=== PATIENT | male | born 1990 | race Caucasian/White ===

== ENCOUNTER 2016-08-03 09:50 | Emergency (ER) | payer OTHER ==
[2016-08-03 09:50] VITALS: BMI 22.6
--- NOTE | 2016-08-03 10:45 | ED PDOC ---
Arrival/HPI - General Chief Complaint: Upper Extremity Problem/Injury Time Seen by Provider: 08/03/16 10:09 Historian: Patient - History of Present Illness Narrative History of Present Illness (Text): 08/03/16 10:40 25yr old male presents today with right hand pain s/p injury. Patient states 2 days ago he closed his hand in the sliding door of a taxi. Patient complaining of pain to the first and second metacarpals of the right hand. Patient denies increased range of motion of the hand. Denies numbness weakness or tingling. No fevers or chills. No medications taken for pain at home. Patient complaining of swelling to the hand. Patient states his friends have been telling him to come to the emergency room for evaluation. Past Medical History - Provider Review Nursing Documentation Reviewed: Yes - Travel History Have you recently traveled outside [place] w/in the past 3 mons?: No - Infectious Disease Hx of Infectious Diseases: None - Tetanus Immunization Tetanus Immunization: Up to Date - Past Medical History Past Medical History: No Previous - Psychiatric Hx Substance Use: No - Past Surgical History Past Surgical History: No Previous - Anesthesia Hx Anesthesia: No Hx Anesthesia Reactions: No Hx Malignant Hyperthermia: No - Suicidal Assessment Feels Threatened In Home Enviroment: No Family/Social History - Physician Review Nursing Documentation Reviewed: Yes Family/Social History: Unknown Family HX Smoking Status: Never Smoked Hx Alcohol Use: No Hx Substance Use: No Allergies/Home Meds Allergies/Adverse Reactions: Allergies No Known Allergies Allergy (Verified 08/03/16 09:54) Home Medications: Home Meds Medication Instructions Recorded Confirmed Ibuprofen [Motrin Tab] 600 mg PO Q6 PRN 08/03/16 08/03/16 Tramadol HCl [Ultram] 50 mg PO QID PRN 08/03/16 08/03/16 Review of Systems - Review of Systems Constitutional: absent: Fatigue, Fevers Respiratory: absent: SOB, Cough Cardiovascular: absent: Chest Pain, Palpitations Gastrointestinal: absent: Abdominal Pain, Nausea, Vomiting Genitourinary Male: absent: Dysuria, Frequency, Hematuria Musculoskeletal: Arthralgias (right hand pain). absent: Back Pain, Neck Pain Skin: absent: Rash, Pruritis Neurological: absent: Headache, Dizziness Psychiatric: absent: Anxiety, Depression Physical Exam Vital Signs Reviewed: Yes Vital Signs Temp Pulse Resp BP Pulse Ox 08/03/16 09:54 98.1 F 85 15 118/68 97 Temperature: Afebrile Blood Pressure: Normal Pulse: Regular Respiratory Rate: Normal Appearance: Positive for: Well-Appearing, Non-Toxic, Comfortable Pain Distress: None Mental Status: Positive for: Alert and Oriented X 3 - Systems Exam Head: Present: Atraumatic Mouth: Present: Moist Mucous Membranes Neck: Present: Normal Range of Motion Respiratory/Chest: Present: Clear to Auscultation, Good Air Exchange. No: Respiratory Distress, Accessory Muscle Use Cardiovascular: Present: Regular Rate and Rhythm, Normal S1, S2. No: Murmurs Upper Extremity: Present: Normal ROM, NORMAL PULSES, Tenderness (right hand; + edema and tenderness noted over the dorsal aspect of the hand between the 1st and 2nd metacarpals; + ttp over thenar eminence. no lacerations/abrasions, full rom of hand. sensation and distal pulses intact. cap refill <2. no wrist tenderness. ), Swelling, Neurovascularly Intact, Capillary Refill < 2s. No: Erythema, Deformity Neurological: Present: GCS=15 Skin: Present: Warm, Dry, Normal Color. No: Rashes Psychiatric: Present: Alert Medical Decision Making ED Course and Treatment: 08/03/16 10:48 Patient nontoxic well-appearing in no distress with stable vital signs X-rays of the right hand; no fracture motrin po Patient placed in thumb spica splint I discussed all results with patient advised to followup with the orthopedist for the next 2 days. Return if symptoms worsen persist or new symptoms develop Patient verbalizes understanding of discharge instructions and need for immediate followup. all aspects of this case were discussed the attending of record. Impression: Hand pain Motrin every 6 hours as needed for pain Rest, ice, compression, elevation Followup with the orthopedist within the next 2 days Followup with primary care physician within the next 2 days Return if any other concerning symptoms develop 08/03/16 12:08 - RAD Interpretation Radiology Orders: 08/03/16 10:18 HAND RIGHT 3 VIEWS [RAD] Stat - Medication Orders Current Medication Orders: Discontinued Medications Ibuprofen (Motrin Tab) 600 mg PO STAT STA Stop: 08/03/16 10:18 Last Admin: 08/03/16 10:30 Dose: 600 MG MAR Pain/Vitals Document 08/03/16 10:30 SE (Rec: 08/03/16 10:30 [id number]) Pain Reassessment Is This A Pain ReAssessment? No Sleep Is patient sleeping during reassessment? No Presence of Pain Presence of Pain Yes Procedures - Splinting Location: right hand Hand-Made Type: fiberglass Splint: thumb spica Pre-Proc Neuro Vasc Exam: normal Post-Proc Neuro Vasc Exam: normal Disposition/Present on Arrival - Present on Arrival Any Indicators Present on Arrival: No History of DVT/PE: No History of Uncontrolled Diabetes: No Urinary Catheter: No History of Decub. Ulcer: No History Surgical Site Infection Following: None - Disposition Have Diagnosis and Disposition been Completed?: Yes Diagnosis: Contusion, hand, Hand pain Disposition: HOME/ ROUTINE Disposition Time: 12:08 Patient Plan: Discharge Condition: GOOD Discharge Instructions (ExitCare): Arthralgia (ED) Additional Instructions: Motrin every 6 hours as needed for pain Rest, ice, compression, elevation Followup with the orthopedist within the next 2 days Followup with primary care physician within the next 2 days Return if any other concerning symptoms develop Prescriptions: Ibuprofen [Motrin] 600 mg PO Q6H PRN #20 tab PRN Reason: pain/fever reduction Referrals: Eriberto Nunes MD [Staff Provider] - Follow up with primary [facility] [Outside] - Follow up with primary Forms: WORK NOTE
--- NOTE | 2016-08-03 11:55 | RAD ---
PROCEDURE: Right Wrist Radiographs. HISTORY: hand closed in taxi door 2 days ago COMPARISON: None. FINDINGS: BONES: Normal. No fracture. JOINTS: Normal. No dislocation. SOFT TISSUES: Suspect mild dorsal soft tissue swelling at the level soft tissue swelling. If symptoms persist or occult fracture suspected clinically, recommend repeat radiographs 5-10 days as most fractures should become radiographically evident in this timeframe. Of the metacarpals. OTHER FINDINGS: None. IMPRESSION: No evidence of acute displaced fracture nor dislocation. Findings suggest mild
[2016-08-03 12:29] VITALS: BP 122/70; PULSE 81; RESP 16; TEMP 98; O2SAT 98
== END 2016-08-03 12:36 | disposition home or self-care (01) ==
LOC: ED 09:50
DX: S60.221A Contusion of right hand, initial encounter (principal); W22.8XXA Striking against or struck by other objects, initial encounter; M79.641 Pain in right hand

== ENCOUNTER 2016-12-11 17:26 | Emergency (ER) | payer OTHER ==
[2016-12-11 17:38] VITALS: BP 119/86; PULSE 98; RESP 16; TEMP 99.1; O2SAT 99; BMI 20.9
--- NOTE | 2016-12-11 18:14 | ED PDOC ---
Arrival/HPI - General Historian: Patient - History of Present Illness Time/Duration: Other (see HPI) Context: Home - General Chief Complaint: Abnormal Skin Integrity Time Seen by Provider: 12/11/16 17:57 - History of Present Illness Narrative History of Present Illness (Text): 12/11/16 17:55 This 26 yo male presents to this ED c/o right pelvic pain is painful with discharge. Patient stated he had a "painful lump" right pelvic area for 5 months. Patient stated he was seen in different hospital without significant help for this problem. patient was seen at [facility], where he underwent an I&D x 3 weeks ago. He was prescribed ABX, which he opted not to take them. Patient denies fever, or testicular pain. (Karis Chung) Past Medical History - Provider Review Nursing Documentation Reviewed: Yes - Infectious Disease Hx of Infectious Diseases: None - Tetanus Immunization Tetanus Immunization: Up to Date - Past Medical History Past Medical History: No Previous - Cardiac Hx Cardiac Disorders: No - Pulmonary Hx Respiratory Disorders: No - Neurological Hx Neurological Disorder: No - HEENT Hx HEENT Disorder: No - Renal Hx Renal Disorder: No - Endocrine/Metabolic Hx Endocrine Disorders: No - Hematological/Oncological Hx Blood Disorders: No - Integumentary Hx Dermatological Disorder: No - Musculoskeletal/Rheumatological Hx Musculoskeletal Disorders: No - Gastrointestinal Hx Gastrointestinal Disorders: No - Genitourinary/Gynecological Hx Genitourinary Disorders: No - Psychiatric Hx Psychophysiologic Disorder: No Hx Substance Use: No - Past Surgical History Past Surgical History: No Previous - Anesthesia Hx Anesthesia: No Hx Anesthesia Reactions: No Hx Malignant Hyperthermia: No - Suicidal Assessment Feels Threatened In Home Enviroment: No Family/Social History - Physician Review Nursing Documentation Reviewed: Yes Family/Social History: No Known Family HX Smoking Status: Never Smoked Hx Alcohol Use: No Hx Substance Use: No Allergies/Home Meds Allergies/Adverse Reactions: Allergies No Known Allergies Allergy (Verified 12/11/16 17:38) Review of Systems - Review of Systems Constitutional: Normal. absent: Fatigue, Weight Change, Fevers Eyes: Normal ENT: Normal Respiratory: Normal Cardiovascular: Normal Gastrointestinal: Normal Genitourinary Male: Normal Musculoskeletal: Normal Skin: Other (right pelvic wound) Neurological: Normal Endocrine: Normal Hemo/Lymphatic: Normal Psychiatric: Normal Physical Exam Temperature: Afebrile Blood Pressure: Normal Pulse: Regular Respiratory Rate: Normal Appearance: Positive for: Well-Appearing, Non-Toxic, Comfortable Pain Distress: None Mental Status: Positive for: Alert and Oriented X 3 - Systems Exam Head: Present: Atraumatic, Normocephalic Pupils: Present: PERRL Extroacular Muscles: Present: EOMI Conjunctiva: Present: Normal Mouth: Present: Moist Mucous Membranes Pharnyx: Present: Normal Neck: Present: Normal Range of Motion Abdomen: Present: Normal Bowel Sounds, Other ((+) a 2 cm mild swelling area just above right groin area in the pelvis, with a small incision with clear discharge. No pelvic or testicualr tenderness). No: Tenderness, Distention, Peritoneal Signs, Guarding, McBurney's Point Tender, Rovsing's Sign Present Back: Present: Normal Inspection. No: CVA Tenderness, Midline Tenderness, Paraspinal Tenderness, Pain with Leg Raise Upper Extremity: Present: Normal Inspection. No: Cyanosis, Edema Lower Extremity: Present: Normal Inspection, NORMAL PULSES, Normal ROM. No: Edema Neurological: Present: GCS=15, CN II-XII Intact, Speech Normal, Motor Func Grossly Intact, Normal Sensory Function, Normal Cerebellar Funct, Gait Normal Skin: Present: Warm, Dry, Normal Color. No: Rashes Psychiatric: Present: Alert, Oriented x 3, Normal Insight, Normal Concentration Medical Decision Making Re-evaluation Time: 18:21 Reassessment Condition: Re-examined, Unchanged ED Course and Treatment: 12/11/16 18:19 Discussed results and plan with patient. Patient understands results and is agreeable with plan. All questions answered Patient was recommended to f/u general surgeon for wound recheck. Also, to contact primary care physician to review STD test. To take medication as instructed. To return to ED if symptoms worsen. To be compliant with medication. 12/11/16 18:21 Dr. Wisdom came to see patient. Dr. Wisdom agreed with plan. Dr. Wisdom used a bedside portable U/S machine, which did not demonstrate significant pus collection (Karis Chung) 12/11/16 19:24 I evaluated this patient with JOSE ENRIQUE Chung. Ultrasound places above wound with no significant collection. Draining already occuring from wound that is clear. No erythema or warmth. No swelling. Agree with PA disposition and plan. ( Isaac Wisdom) - Medication Orders Current Medication Orders: Discontinued Medications Doxycycline Hyclate (Doryx) 100 mg PO STAT STA PRN Reason: Protocol Stop: 12/11/16 18:18 Last Admin: 12/11/16 18:30 Dose: 100 mg Disposition/Present on Arrival - Present on Arrival Any Indicators Present on Arrival: No History of DVT/PE: No History of Uncontrolled Diabetes: No Urinary Catheter: No History of Decub. Ulcer: No History Surgical Site Infection Following: None - Disposition Have Diagnosis and Disposition been Completed?: Yes Disposition Time: 18:23 Patient Plan: Discharge - Disposition Diagnosis: Encounter for wound re-check, Skin induration Disposition: HOME/ ROUTINE Condition: GOOD Discharge Instructions (ExitCare): Abscess Incision and Drainage (ED) Additional Instructions: Call Dr. Gonzales General Surgeon for wound check. Make sure to see primary care doctor to review STD test. Take medication as instructed with food. Return to emergency if symptoms worsen. Clean wound with soap and water daily. apply ointment. avoid sun light while taking this antibiotic Prescriptions: Doxycycline Monohydrate 100 mg PO BID #28 tablet Mupirocin 2% Ointment [Bactroban Ointment] 1 appl TP BID #1 tube Referrals: [place] Mac[place], [Primary Care Provider] - Follow up with primary Antonio Gonzales MD [Medical Doctor] - Follow up with primary Forms: [employer] ([place]izen [place])
== END 2016-12-11 18:34 | disposition home or self-care (01) ==
LOC: ED 17:26
DX: Z48.817 Encounter for surgical aftercare following surgery on the skin and subcutaneous tissue (principal); R23.4 Changes in skin texture